=== PATIENT | male | born 1980 | race Caucasian/White ===

== ENCOUNTER 2020-04-25 21:49 | Inpatient (IN) ==
[2020-04-25] MEDS ORDERED: 0.9 % SODIUM CHLORIDE 2,000 ML IV ONE (22:04)
[2020-04-25] MEDS ORDERED: KETOROLAC 30 MG/ML VIAL IV ONE (22:04)
[2020-04-25] MEDS ORDERED: cefTRIAXone 1 GM in DEXTROSE 5% IN WATER 50 ML IV SCH (22:15)
--- NOTE | 2020-04-25 23:27 | Emergency Department Note ---
HPI General Chief complaint: Cold/Flu Symptoms Stated complaint: Fever, nausea, vomiting X1 week Time Seen by Provider: 04/25/20 22:04 Source: patient Mode of arrival: ambulatory Limitations: no limitations History of Present Illness HPI Narrative: 39-year-old patient presenting to the emergency department the chief complaint of not feeling well/generally ill. Patient with onset of symptoms 1 week prior to arrival. There are no exacerbating or ameliorating factors for this issue except that time is making this worse. The symptoms are sudden onset that are progressive over time. Patient has not been seen for this. Patient denies cyanosis, mottling, decreased urine output, altered mental status, restlessness, obtundation. Patient reports a warm flush skin and generalized diaphoresis. Patient claims fever, cough, and denies dysuria, abdominal pain. Related Data Home Medications Medication Instructions Recorded Confirmed No Known Home Meds 04/25/20 04/25/20 Allergies Allergy/AdvReac Type Severity Reaction Status Date / Time No Known Drug Allergies Allergy Unverified 04/25/20 21:51 Review of Systems All systems ED: reviewed and negative except as stated. [facility] Narrative Patient History Narrative: Sepsis Pneumonia Medical/Surgical/Family History All Active Problems (Updated 04/26/20 @ 00:23 by Pee Miller MD) Sepsis (Acute) Community acquired pneumonia (Acute) Social History Smoking Status: Current every day smoker Exam Narrative Narrative: Physical exam directed toward trying to find a source for possible infection in this patient, noting patient is febrile General: Alert, interactive, appropriate Head: Atraumatic, normocephalic Eyes: Extraocular movements intact, sclera anicteric, no conjunctival injection Ears: Pinnae normal, no discharge Mouth: Oral mucosa moist, no acute swelling or evidence of infection Nares: No nasal discharge, patent bilaterally Neck: Trachea midline, full range of motion Chest: Symmetrical chest wall rise, breathing normally; nonlabored respirations; patient does have abnormal breath sounds on the right side of his chest Cardiovascular: Patient with excellent perfusion to the extremities; with significant tachycardia Skin: Patient without area of erythema, patient is without rash, no ascending lymphangitis or lymphadenopathy Extremities: Full range of motion joints, no obvious deformities Neuro: Alert, oriented x3, cranial nerves II through XII grossly intact, patient without lateralizing findings such as weakness, or abnormal reflexes Psychiatric: Normal affect, normal mood General Limitations: no limitations Course Vital Signs Vital signs: Vital Signs Temperature 102.6 F H 04/25/20 21:51 Pulse Rate 127 H 04/25/20 21:51 Respiratory Rate 18 04/25/20 21:51 Blood Pressure 160/76 04/25/20 21:51 Pulse Oximetry (%) 96 04/25/20 21:51 Temperature 101.0 F H 04/25/20 23:42 Pulse Rate 102 H 04/25/20 23:42 Respiratory Rate 21 04/25/20 23:32 Blood Pressure 127/80 04/25/20 23:32 Pulse Oximetry (%) 94 04/25/20 23:42 MDM MDM Narrative Medical decision making narrative: 39-Year-old patient presenting to the emergency department chief complaint of fever/sepsis. Differential diagnosis considered in this case included infectious etiologies and various organ systems, drug fever/medication reaction, malignancy, ICH, NMS, meningococcus, RMSF, endocarditis. Patient noted to be severely tachycardic on presentation as well as febrile. Patient does have pneumonia on chest x-ray also does have abnormal breath sounds on that side on the right side. Despite 2 L of fluid resuscitation as well as Rocephin patient's pulse did not resolve and patient was persistently febrile. Patient with significant elevation in his white blood cell count. Lab Data Result diagrams: 04/25/20 22:10 04/25/20 22:10 Labs: Lab Results 04/25/20 04/25/20 04/25/20 Range/Units 22:10 22:10 22:10 WBC 23.8 H (4.50-11.00) K/mcL RBC 5.62 (4.63-6.08) M/mcL Hgb 16.2 (13.7-17.5) g/dL Hct 47.8 (40.1-51.0) % MCV 85.1 (80.0-100.0) fL MCH 28.8 (26.0-34.0) pg MCHC 33.9 (31.0-36.0) g/dL RDW 12.8 (11.5-14.5) % Plt Count 163 (140-440) K/mcL MPV 11.6 H (7.4-10.4) fL Gran % 87.5 H (38.0-78.0) % Lymph % (Auto) 6.2 L (15.5-49.0) % [place] % (Auto) 6.0 (1.0-12.0) % Eos % (Auto) 0.1 (0.0-7.0) % Baso % (Auto) 0.2 (0.0-2.0) % Gran # 20.85 H (1.80-8.00) K/mcL Lymph # (Auto) 1.47 L (1.50-4.80) K/mcL [place] # (Auto) 1.42 H (0.10-0.90) K/mcL Eos # (Auto) 0.03 (0.00-0.70) K/mcL Baso # (Auto) 0.04 (0.00-0.30) K/mcL Differential Comment VBG Lactic Acid (0.5-2.0) mmol/L Sodium 127 L (133-145) mmol/L Potassium 3.4 (3.3-5.1) mmol/L Chloride 91 L (96-108) mmol/L Carbon Dioxide 18 L (22-30) mmol/L Anion Gap 18.0 H (8-16) BUN 19 (6-20) mg/dl Creatinine 1.5 H (0.7-1.2) mg/dl GFR Calculation 58 Glucose 127 H (70-105) mg/dL Calcium 9.0 (8.6-10.4) mg/dl Total Bilirubin 0.8 (0.0-1.0) mg/dL AST 259 H (0-37) U/l ALT 73 H (0-40) U/l Alkaline Phosphatase 71 (39-117) U/L Total Protein 7.7 (5.9-8.4) gm/dL Albumin 3.3 (3.2-5.2) gm/dL Globulin 4.4 H (2.2-3.7) gm/dL Albumin/Globulin Ratio 0.8 L (1.0-2.3) Procalcitonin 3.24 (<0.10) ng/mL Urine Color Urine Appearance Urine pH (5.0-9.0) Ur Specific [place] (1.000-1.035) Urine Protein (NEG) mg/dL Urine Glucose (UA) (NEG) mg/dL Urine Ketones (NEG) mg/dL Urine Occult Blood (<0.03) mg/dL Urine Nitrate (NEG) Urine Bilirubin (NEG) mg/dL Urine Urobilinogen (NEG) mg/dL Ur Leukocyte Esterase (NEG) /uL Urine RBC (0-1) /hpf Urine WBC (0-4) /hpf Ur Squamous Epith Cells (0-4) /hpf Urine Bacteria (0) /hpf Hyaline Casts (0-2) /lpf Urine Mucus (0) /hpf Ur Culture Indicated? 04/25/20 04/25/20 Range/Units 22:10 23:35 WBC (4.50-11.00) K/mcL RBC (4.63-6.08) M/mcL Hgb (13.7-17.5) g/dL Hct (40.1-51.0) % MCV (80.0-100.0) fL MCH (26.0-34.0) pg MCHC (31.0-36.0) g/dL RDW (11.5-14.5) % Plt Count (140-440) K/mcL MPV (7.4-10.4) fL Gran % (38.0-78.0) % Lymph % (Auto) (15.5-49.0) % [place] % (Auto) (1.0-12.0) % Eos % (Auto) (0.0-7.0) % Baso % (Auto) (0.0-2.0) % Gran # (1.80-8.00) K/mcL Lymph # (Auto) (1.50-4.80) K/mcL [place] # (Auto) (0.10-0.90) K/mcL Eos # (Auto) (0.00-0.70) K/mcL Baso # (Auto) (0.00-0.30) K/mcL Differential Comment VBG Lactic Acid 1.8 (0.5-2.0) mmol/L Sodium (133-145) mmol/L Potassium (3.3-5.1) mmol/L Chloride (96-108) mmol/L Carbon Dioxide (22-30) mmol/L Anion Gap (8-16) BUN (6-20) mg/dl Creatinine (0.7-1.2) mg/dl GFR Calculation Glucose (70-105) mg/dL Calcium (8.6-10.4) mg/dl Total Bilirubin (0.0-1.0) mg/dL AST (0-37) U/l ALT (0-40) U/l Alkaline Phosphatase (39-117) U/L Total Protein (5.9-8.4) gm/dL Albumin (3.2-5.2) gm/dL Globulin (2.2-3.7) gm/dL Albumin/Globulin Ratio (1.0-2.3) Procalcitonin (<0.10) ng/mL Urine Color [place] Urine Appearance Cloudy Urine pH 5.0 (5.0-9.0) Ur Specific [place] 1.033 (1.000-1.035) Urine Protein 100 A (NEG) mg/dL Urine Glucose (UA) Negative (NEG) mg/dL Urine Ketones 20 A (NEG) mg/dL Urine Occult Blood >=1.0 A (<0.03) mg/dL Urine Nitrate Neg (NEG) Urine Bilirubin Neg (NEG) mg/dL Urine Urobilinogen 4.0 A (NEG) mg/dL Ur Leukocyte Esterase Neg (NEG) /uL Urine RBC 4 H (0-1) /hpf Urine WBC 10 H (0-4) /hpf Ur Squamous Epith Cells 3 (0-4) /hpf Urine Bacteria 0 (0) /hpf Hyaline Casts 8 H (0-2) /lpf Urine Mucus Many A (0) /hpf Ur Culture Indicated? Yes CC TIME Critical Care Time Critical Care Time: Yes Total Critical Care Time: 60 Attestation: This critical care time was direct patient care exclusive of other procedures. Discharge Plan Patient/Caregiver Discharge Instructions Pt seen by FOOD COUNTER ATTENDANT/PA only: No Clinical Impression: Sepsis Qualifiers: Sepsis type: sepsis due to unspecified organism Sepsis acute organ dysfunction status: with acute organ dysfunction Severe sepsis acute organ dysfunction type: unspecified Severe sepsis shock status: without septic shock Qualified Code(s): A41.9 - Sepsis, unspecified organism Community acquired pneumonia Qualifiers: Laterality: right Lung location: middle lobe of lung Qualified Code(s): J18.9 - Pneumonia, unspecified organism Prescriptions: No Action No Known Home Meds RF: 0 Follow up with: No,PCP [Primary Care Provider] - Patient Disposition: Xfer As Inpt ([facility])
[2020-04-25 23:30] LABS: ALT/SGPT 73 U/l (0-40); AST/SGOT 259 U/l (0-37); Albumin 3.3 gm/dL (3.2-5.2); Albumin/Globulin Ratio 0.8 (1.0-2.3); Alkaline Phosphatase 71 U/L (39-117); Bilirubin,Total 0.8 mg/dL (0.0-1.0); Blood Urea Nitrogen 19 mg/dl (6-20); Carbon Dioxide 18 mmol/L (22-30); Globulin 4.4 gm/dL (2.2-3.7); Glomerular Filtration Rate 58; Glucose 127 mg/dL (70-105)
[2020-04-25 23:32] LABS: Chloride 91 mmol/L (96-108)
[2020-04-25 23:33] LABS: Basophils # (Auto) 0.04 K/mcL (0.00-0.30); Basophils % (Auto) 0.2 % (0.0-2.0); Eosinophils # (Auto) 0.03 K/mcL (0.00-0.70); Eosinophils % (Auto) 0.1 % (0.0-7.0); Granulocytes % (Auto) 87.5 % (38.0-78.0); Hematocrit 47.8 % (40.1-51.0); Hemoglobin 16.2 g/dL (13.7-17.5); Lymphocytes # (Auto) 1.47 K/mcL (1.50-4.80); Lymphocytes % (Auto) 6.2 % (15.5-49.0); Mean Cell Volume 85.1 fL (80.0-100.0); Mean Corpuscular HGB Conc 33.9 g/dL (31.0-36.0); Mean Platelet Volume 11.6 fL (7.4-10.4); Monocytes # (Auto) 1.42 K/mcL (0.10-0.90); Platelet Count 163 K/mcL (140-440); RBC 5.62 M/mcL (4.63-6.08); Red Cell Distribution Width 12.8 % (11.5-14.5); WBC 23.8 K/mcL (4.50-11.00)
[2020-04-26 00:30] LABS: Appearance,Urine CLOUDY; Bacteria,Urine 0 /hpf (0); Bilirubin,Urine NEG (NEG); Color,Urine AMBER; Culture Indicated,Urine YES; Glucose,Urine (UA) NEGATIVE (NEG); Ketones,Urine 20 mg/dL (NEG); Leukocyte Esterase,Urine NEG /uL (NEG); Mucus,Urine MANY /hpf (0); Nitrate,Urine NEG (NEG); Protein,Urine 100 mg/dL (NEG); Specific Gravity,Urine 1.033 (1.000-1.035); Urine Blood >=1.0 mg/dL (<0.03); Urine Hyaline Cast 8 /lpf (0-2); Urine RBC 4 /hpf (0-1); Urine Squamous Epithelial Cell 3 /hpf (0-4); Urine WBC 10 /hpf (0-4)
[2020-04-26] MEDS ORDERED: AZITHROMYCIN 500 MG in DEXTROSE 5% IN WATER 250 ML IV ONE (00:37)
[2020-04-26] MEDS ORDERED: ACETAMINOPHEN 325 MG TABLET PO PRN (00:39)
[2020-04-26] MEDS ORDERED: HYDROcodone/APAP 5/325MG TABLET PO PRN (00:39)
[2020-04-26] MEDS ORDERED: ONDANSETRON 4 MG/2 ML VIAL IV PRN ×2 (00:39→09:04)
[2020-04-26] MEDS ORDERED: AZITHROMYCIN 500 MG in DEXTROSE 5% IN WATER 250 ML IV SCH (00:45)
[2020-04-26] MEDS ORDERED: cefTRIAXone 1 GM in DEXTROSE 5% IN WATER 50 ML IV SCH (00:45)
[2020-04-26] MEDS: 0.9 % SODIUM CHLORIDE 1,000 ML IV SCH ×2 (02:23→09:21)
--- NOTE | 2020-04-26 04:25 | XRay Report ---
CLINICAL INFORMATION: cough COMPARISON: None. FINDINGS: Heart size, mediastinum and pulmonary vessels are normal. A 7 cm masslike right perihilar infiltrate has developed. The remaining lungs are clear. No effusions. Bones and soft tissues normal. IMPRESSION: 7 cm masslike right perihilar infiltrate. Suggest treatment for pneumonia and repeat two view upright chest x-ray in two weeks to ensure resolution (i.e. the absence of an underlying mass) Interpreted and Authenticated by: Nathaniel Ho 04/26/20
[2020-04-26] MEDS ORDERED: 0.9 % SODIUM CHLORIDE 10 ML SYRINGE IV SCH (06:00)
[2020-04-26] MEDS ORDERED: DOCUSATE SODIUM 100 MG CAPSULE PO SCH (09:00)
[2020-04-26] MEDS: DEXAMETHASONE 4 MG TABLET PO SCH (09:04)
[2020-04-26] MEDS: ENOXAPARIN 40 MG/0.4 ML SYRINGE SQ SCH ×2 (10:23→21:23)
[2020-04-26] MEDS: ALBUTEROL SULFATE 200 PUFF INHALER INH PRN ×3 (10:23→21:26)
[2020-04-26] MEDS: cefTRIAXone 2 GM in DEXTROSE 5% IN WATER 50 ML IV SCH (10:23)
[2020-04-26 10:42] LABS: C-Reactive Protein 34.9 mg/dl (0.0-0.8)
--- NOTE | 2020-04-26 12:08 | Internal Med History&Physical ---
HPI History of Present Illness Patient information: Note initiated : 04/26/20 at 12:03 pm Service Date, if different from initiated Date: [] Patient: Kevin Brumfield a 39 y/o M admitted on 04/26/20 for Fever, nausea, vomiting X1 week. Chief Complaint: 39-year-old gentleman with a history of active smoking was brought to the ER because he is not feeling well and having chills. Patient symptoms started 1 week prior to arrival and he did not check his temperature and not sure he had fever last 7 days. But he was feeling tired weak and having shortness of breath with activities patient denied any exposure to anyone tested positive for COVID-19. Patient denied any travel outside the state. Patient started having cough for the last 3 days which has been progressively worse and which is mostly dry cough. Patient was evaluated in the ED and found out to be on since having sepsis and started on ceftriaxone azithromycin and chest x-ray showing more like a focal lesion on the right hilar area. But his other lab findings suggestive of COVID-19 with acute lymphopenia and elevated d- dimer and inflammatory markers. COVID-19 PCR ordered in the ED History of present illness: Mr. Brumfield is a 39 year old M Constitutional Constitutional: Present as per HPI, anorexia, chills, excessive sweating, fatigue, lethargy, malaise and weakness EENT Eyes: Absent blind spots, blurry vision, change in vision, decreased night vision, diplopia and discharge Ears: Absent decreased hearing, ear discharge and ear pain Nose, mouth and throat: Present change in voice, dizziness, headache(s) and hoarseness; Absent epistaxis, nasal discharge and nasal obstruction Cardiovascular Cardiovascular: Present diaphoresis, dyspnea on exertion and palpatations; Absent irregular heart rhythm, leg ulcers, radiating pain and syncope Respiratory Respiratory: Present cough, dyspnea, dyspnea on exertion, wheezing, chest congestion and pain with cough; Absent stridor and excessive phlegm production Gastrointestinal Gastrointestinal: Present diarrhea; Absent change in bowel habits, constipation and dyspepsia Musculoskeletal Musculoskeletal: Present muscle weakness; Absent atrophy, back pain and joint swelling Neurological Neurological: Absent abnormal gait, abnormal movements, abnormal speech, confusion and dizziness Psychiatric Psychiatric: Present anxiety; Absent abnormal sleep pattern, auditory hallucinations, change in libido and depression Endocrine Endocrine: Present fatigue; Absent change in body appearance, cold intolerance and deeping of the voice Hematologic/Lymphatic Hematologic/Lymphatic: Absent easy bleeding and lymphadenopathy Allergic/Immunologic Allergic/Immunologic: Present seasonal rhinorrhea and wheezing; Absent tongue swelling, itchy eyes and uticaria [facility] Social History smoking status: Current every day smoker MEDS/ALLERGIES Home Medications and Allergies Home Medications Medication Instructions Recorded Confirmed Type No Known Home Meds 04/25/20 04/25/20 History Allergies Allergy/AdvReac Type Severity Reaction Status Date / Time No Known Drug Allergies Allergy Unverified 04/25/20 21:51 EXAM Constitutional Vitals: Temp Pulse Resp BP Pulse Ox 98.5 F 101 H 16 113/81 94 04/26/20 07:46 04/26/20 03:24 04/26/20 07:46 04/26/20 07:46 04/26/20 09:04 General appearance: mild distress, morbidly obese and obese Head Head exam: Present atraumatic and normal inspection Eye Eye exam: Present conjunctival injection and EOMI; Absent periorbital swelling and scleral icterus ENT ENT exam: Present mucous membranes dry Neck Neck exam: Absent lymphadenopathy, meningismus and tenderness Respiratory Respiratory exam: Present accessory muscle use, respiratory distress and wheezes ; Absent chest wall tenderness and decreased breath sounds Cardiovascular Cardiovascular exam: Present tachycardia; Absent clicks, irregular rhythm, rubs, +S3 and systolic murmur GI/Abdominal GI/Abdominal exam: Present normal bowel sounds, soft and distended Extremities Exam Extremities exam: Present normal capillary refill and neurovascular intact; Absent tenderness and Neena's sign Psychiatric Psychiatric exam: Present anxious; Absent agitated and depressed DATA Data Completed and Pending Labs on day of discharge: Labs from last 24 hours 04/26/20 04/26/20 04/26/20 09:30 08:47 01:15 WBC RBC Hgb Hct MCV MCH MCHC RDW Plt Count MPV Gran % Lymph % (Auto) [place] % (Auto) Eos % (Auto) Baso % (Auto) Gran # Lymph # (Auto) [place] # (Auto) Eos # (Auto) Baso # (Auto) Differential Comment D-Dimer 5.08 H VBG Lactic Acid Sodium Potassium Chloride Carbon Dioxide Anion Gap BUN Creatinine GFR Calculation Glucose Calcium Ferritin 1152.0 H Total Bilirubin AST ALT Alkaline Phosphatase C-Reactive Protein 34.9 H Total Protein Albumin Globulin Albumin/Globulin Ratio Procalcitonin Urine Color Urine Appearance Urine pH Ur Specific [place] Urine Protein Urine Glucose (UA) Urine Ketones Urine Occult Blood Urine Nitrate Urine Bilirubin Urine Urobilinogen Ur Leukocyte Esterase Urine RBC Urine WBC Ur Squamous Epith Cells Urine Bacteria Hyaline Casts Urine Mucus Ur Culture Indicated? Nasal/Oral COVID-19 PCR Pending 04/25/20 04/25/20 04/25/20 23:35 22:10 22:10 WBC RBC Hgb Hct MCV MCH MCHC RDW Plt Count MPV Gran % Lymph % (Auto) [place] % (Auto) Eos % (Auto) Baso % (Auto) Gran # Lymph # (Auto) [place] # (Auto) Eos # (Auto) Baso # (Auto) Differential Comment D-Dimer VBG Lactic Acid 1.8 Sodium 127 L Potassium 3.4 Chloride 91 L Carbon Dioxide 18 L Anion Gap 18.0 H BUN 19 Creatinine 1.5 H GFR Calculation 58 Glucose 127 H Calcium 9.0 Ferritin Total Bilirubin 0.8 AST 259 H ALT 73 H Alkaline Phosphatase 71 C-Reactive Protein Total Protein 7.7 Albumin 3.3 Globulin 4.4 H Albumin/Globulin Ratio 0.8 L Procalcitonin Urine Color [place] Urine Appearance Cloudy Urine pH 5.0 Ur Specific [place] 1.033 Urine Protein 100 A Urine Glucose (UA) Negative Urine Ketones 20 A Urine Occult Blood >=1.0 A Urine Nitrate Neg Urine Bilirubin Neg Urine Urobilinogen 4.0 A Ur Leukocyte Esterase Neg Urine RBC 4 H Urine WBC 10 H Ur Squamous Epith Cells 3 Urine Bacteria 0 Hyaline Casts 8 H Urine Mucus Many A Ur Culture Indicated? Yes Nasal/Oral COVID-19 PCR 04/25/20 04/25/20 22:10 22:10 WBC 23.8 H RBC 5.62 Hgb 16.2 Hct 47.8 MCV 85.1 MCH 28.8 MCHC 33.9 RDW 12.8 Plt Count 163 MPV 11.6 H Gran % 87.5 H Lymph % (Auto) 6.2 L [place] % (Auto) 6.0 Eos % (Auto) 0.1 Baso % (Auto) 0.2 Gran # 20.85 H Lymph # (Auto) 1.47 L [place] # (Auto) 1.42 H Eos # (Auto) 0.03 Baso # (Auto) 0.04 Differential Comment D-Dimer VBG Lactic Acid Sodium Potassium Chloride Carbon Dioxide Anion Gap BUN Creatinine GFR Calculation Glucose Calcium Ferritin Total Bilirubin AST ALT Alkaline Phosphatase C-Reactive Protein Total Protein Albumin Globulin Albumin/Globulin Ratio Procalcitonin 3.24 Urine Color Urine Appearance Urine pH Ur Specific [place] Urine Protein Urine Glucose (UA) Urine Ketones Urine Occult Blood Urine Nitrate Urine Bilirubin Urine Urobilinogen Ur Leukocyte Esterase Urine RBC Urine WBC Ur Squamous Epith Cells Urine Bacteria Hyaline Casts Urine Mucus Ur Culture Indicated? Nasal/Oral COVID-19 PCR A/P Narrative A/P Narrative: Narrative: Sepsis due to pneumonia Present with the tachypnea tachycardia and leukocytosis His lab profile suggestive of COVID-19 pneumonia with the absolute acute lymphopenia elevated d-dimer and elevated liver enzymes But his chest x-ray not typical for COVID-19 pneumonia-could be an early chest x-ray We will monitor his oxygenation Started him on antibiotics ceftriaxone and azithromycin and is treating him for COVID-19 pneumonia COVID-19 PCR pending Acute hypoxic respiratory failure [id number] versus COVID 19 pneumonia Patient presented with worsening shortness of breath and sepsis Strict airborne droplet isolation COVID-19 PCR pending Started him on Lovenox 40 twice daily with elevated d-dimer Started him on dexamethasone 6 mg p.o. if he become more hypoxic will change to IV Ceftriaxone azithromycin to cover for community-acquired pneumonia Sputum Gram stain and culture Tobacco dependence Will use nicotine patch and encourage the patient to cut down and stop smoking DVT prophylaxis-on Lovenox 40 twice daily CODE STATUS-full code Explained to the patient about the critical nature of the problem and if it is COVID-19 pneumonia there is a high likely chance he can go into requiring high flow oxygen and might even requiring ventilator. Patient understand that CPT [id number] Time Spent With Patient Time: Total time spent is greater than 50% in coordination of care (as documented) at patient's floor/unit and/or counseling patient: QUALITY VTE Deep Vein Thrombosis/Pulmonary Embolism Present on Admission: No
[2020-04-26] MEDS ORDERED: cefTRIAXone 1 GM VIAL IV SCH (13:00)
[2020-04-26] MEDS: guaiFENesin/CODEINE 10 ML UDC PO PRN (16:45)
[2020-04-26] MEDS: AZITHROMYCIN 500 MG in DEXTROSE 5% IN WATER 250 ML IV SCH (16:46)
[2020-04-26] MEDS: 0.9 % SODIUM CHLORIDE 10 ML SYRINGE IV SCH ×2 (16:47→21:25)
[2020-04-26] MEDS ORDERED: SENNOSIDES 1 TABLET PO SCH (21:00)
[2020-04-26] MEDS: ACETAMINOPHEN 325 MG TABLET PO PRN (21:23)
[2020-04-26] MEDS: SENNOSIDES 1 TABLET PO SCH (21:24)
[2020-04-26] MEDS: DOCUSATE SODIUM 100 MG CAPSULE PO SCH (21:24)
[2020-04-27] MEDS: ALBUTEROL SULFATE 200 PUFF INHALER INH PRN ×2 (03:38→18:55)
[2020-04-27] MEDS: 0.9 % SODIUM CHLORIDE 10 ML SYRINGE IV SCH ×3 (05:15→23:47)
[2020-04-27] MEDS: PANTOPRAZOLE 40 MG TABLET PO SCH (09:02)
[2020-04-27] MEDS: DEXAMETHASONE 4 MG TABLET PO SCH (09:03)
[2020-04-27] MEDS: DOCUSATE SODIUM 100 MG CAPSULE PO SCH ×2 (09:04→21:43)
[2020-04-27] MEDS: ENOXAPARIN 40 MG/0.4 ML SYRINGE SQ SCH ×2 (09:04→21:43)
[2020-04-27] MEDS: cefTRIAXone 2 GM in DEXTROSE 5% IN WATER 50 ML IV SCH (09:04)
[2020-04-27] MEDS: guaiFENesin/CODEINE 10 ML UDC PO PRN ×3 (09:25→21:41)
[2020-04-27] MEDS: ACETAMINOPHEN 325 MG TABLET PO PRN ×2 (09:25→21:42)
[2020-04-27] MEDS: AZITHROMYCIN 500 MG in DEXTROSE 5% IN WATER 250 ML IV SCH (09:27)
--- NOTE | 2020-04-27 13:06 | Internal Med Progress Note ---
SUBJECTIVE Subjective Patient information: Note initiated : 04/27/20 at 1:05 pm Service Date, if different from initiated Date: [] Patient: Kevin Brumfield 39 y/o M admitted on 04/26/20 for Fever, nausea, vomiting X1 week. Chief Complaint: [] 39-year-old gentleman with a history of active smoking was brought to the ER because he is not feeling well and having chills. Patient symptoms started 1 we ek prior to arrival and he did not check his temperature and not sure he had fever last 7 days. But he was feeling tired weak and having shortness of breath with activities patient denied any exposure to anyone tested positive for COVID-19. Patient denied any travel outside the state. Patient started having cough for the last 3 days which has been progressively worse and which is mostly dry cough. Patient was evaluated in the ED and found out to be on since having sepsis and started on ceftriaxone azithromycin and chest x-ray showing more like a focal lesion on the right hilar area. But his other lab findings suggestive of COVID-19 with acute lymphopenia and elevated d-dimer and inflamm atory markers. COVID-19 PCR ordered in the ED 04/27 Since admission patient was started on Lovenox, dexamethasone and ceftriaxone and azithromycin for community-acquired pneumonia COVID-19 PCR still pending Patient's hypoxia significantly improved and patient feeling significantly better He was able to sit up without having any hypoxia Review of system General-no fever no chills overnight Respiratory-continued having cough shortness of breath improved and hypoxia improved Cardiac-no chest pain no palpitation no dizziness no syncope Abdominal-no diarrhea no constipation no abdominal pain no tenderness Musculoskeletal-continued having muscle pain and limited activity Urinary-denied any urine symptoms no increasing frequency or dysuria Neuro-no headache no focal neuro deficit Interval history: Narrative: Constitutional Vitals: Vital Signs Temp Pulse Resp BP Pulse Ox 96.7 F L 89 18 122/78 94 04/27/20 11:37 04/27/20 11:37 04/27/20 11:37 04/27/20 11:37 04/27/20 11:37 Period Temp Pulse Resp BP Sys/Majano Pulse Ox Last 24 Hr 96.7 F-99.5 F 84-100 16-22 116-126/68-84 94-98 Intake and Output 04/26/20 04/27/20 04/27/20 21:59 05:59 13:59 Intake Total 1150 1100 300 Output Total 200 1000 300 Balance 950 100 0 Weight 277 lb 9 oz Intake & Output: Intake & Output 04/26/20 04/27/20 04/27/20 21:59 05:59 13:59 Intake Total 1150 1100 300 Output Total 200 1000 300 Balance 950 100 0 Weight 277 lb 9 oz Intake: IV 250 300 Zithromax 500 mg In Dextrose 5% 250 250 in Water 250 ml @ 250 mls/hr IV DAILY KEISHA Rx#:[id number] Rocephin 2 gm In Dextrose 5% in 50 Water 50 ml @ 100 mls/hr IV DAILY KEISHA Rx#:[id number] Oral 900 1100 Output: Void Amount 200 1000 300 Other: Meal Dinner Percent of Meal Consumed 100% Feeding Ability Independent Urine Appearance Clear Clear Clear Urine Color Bright Yellow Tea Colored Light Emani Urine Odor Strong Stool Size Large Stool Color Brown Stool Consistency Loose General appearance: mild distress and obese Head Head exam: Present atraumatic, normal inspection and normocephalic Eye Eye exam: Present EOMI; Absent periorbital swelling and scleral icterus ENT ENT exam: Present mucous membranes moist and normal oropharynx Neck Neck exam: Present full ROM; Absent lymphadenopathy and tenderness Respiratory Respiratory exam: Absent accessory muscle use, respiratory distress and rhonchi Cardiovascular Cardiovascular exam: Present normal rate and rhythm; Absent bradycardia, systolic murmur and tachycardia GI/Abdominal GI/Abdominal exam: Present distended; Absent guarding Neurological Exam Neurological exam: Present alert, CN II-XII intact, oriented X3 and reflexes normal; Absent motor sensory deficit Psychiatric Psychiatric exam: Absent agitated, anxious and depressed OBJ DATA Labs CBC & Chem 7: 04/25/20 22:10 04/25/20 22:10 Labs: Abnormal Lab Results 04/26/20 04/26/20 04/25/20 09:30 08:47 23:35 WBC MPV Gran % Lymph % (Auto) Gran # Lymph # (Auto) Casey # (Auto) D-Dimer 5.08 H Sodium Chloride Carbon Dioxide Anion Gap Creatinine Glucose Ferritin 1152.0 H AST ALT C-Reactive Protein 34.9 H Globulin Albumin/Globulin Ratio Urine Protein 100 A Urine Ketones 20 A Urine Occult Blood >=1.0 A Urine Urobilinogen 4.0 A Urine RBC 4 H Urine WBC 10 H Hyaline Casts 8 H Urine Mucus Many A 04/25/20 04/25/20 22:10 22:10 WBC 23.8 H MPV 11.6 H Gran % 87.5 H Lymph % (Auto) 6.2 L Gran # 20.85 H Lymph # (Auto) 1.47 L Casey # (Auto) 1.42 H D-Dimer Sodium 127 L Chloride 91 L Carbon Dioxide 18 L Anion Gap 18.0 H Creatinine 1.5 H Glucose 127 H Ferritin AST 259 H ALT 73 H C-Reactive Protein Globulin 4.4 H Albumin/Globulin Ratio 0.8 L Urine Protein Urine Ketones Urine Occult Blood Urine Urobilinogen Urine RBC Urine WBC Hyaline Casts Urine Mucus Meds: Medications Acetaminophen (Tylenol) 650 mg PO Q6HP PRN; Protocol PRN Reason: Per Pain Protocol/Fever > 101 Last Admin: 04/27/20 09:25 Dose: 650 mg Documented by: Albuterol Sulfate (Ventolin) 2 puff INH Q4HP PRN PRN Reason: Shortness Of Breath Last Admin: 04/27/20 03:38 Dose: 2 puff Documented by: Dexamethasone (Decadron) 6 mg PO DAILY [facility] Last Admin: 04/27/20 09:03 Dose: 6 mg Documented by: Docusate Sodium (Colace) 100 mg PO BID [facility] Last Admin: 04/27/20 09:04 Dose: Not Given Documented by: Enoxaparin Sodium (Lovenox) 40 mg SQ BID [facility] Last Admin: 04/27/20 09:04 Dose: 40 mg Documented by: Guaifenesin/Codeine Phosphate (Robitussin Ac) 10 ml PO Q4HP PRN PRN Reason: Cough Last Admin: 04/27/20 09:25 Dose: 10 ml Documented by: Ceftriaxone Sodium 2 gm/ (Dextrose) 50 mls @ 100 mls/hr IV DAILY [facility] Last Infusion: 04/27/20 09:34 Dose: Infused Documented by: Ondansetron HCl (Zofran) 4 mg IV Q6HP PRN PRN Reason: Nausea And Vomiting Pantoprazole Sodium (Protonix) 40 mg PO QAMAC [facility] Last Admin: 04/27/20 09:02 Dose: 40 mg Documented by: Senna (Senokot) 2 tab PO HS [facility] Last Admin: 04/26/20 21:24 Dose: Not Given Documented by: Sodium Chloride (Saline Flush) 10 ml IV Q8 [facility] Last Admin: 04/27/20 05:15 Dose: 10 ml Documented by: A/P Narrative A/P Narrative: Narrative: Sepsis due to pneumonia-improved Present with the tachypnea tachycardia and leukocytosis His lab profile suggestive of COVID-19 pneumonia with the absolute acute lymphopenia elevated d-dimer and elevated liver enzymes But his chest x-ray not typical for COVID-19 pneumonia-could be an early chest x-ray We will monitor his oxygenation Started him on antibiotics ceftriaxone and azithromycin and is treating him for COVID-19 pneumonia COVID-19 PCR pending Patient was started on Lovenox 40 twice daily with his obesity smoking and risk of COVID-19 ARDS Continued ceftriaxone and azithromycin Acute hypoxic respiratory failure Uaqijywbe-njlknzfhw-uofniuiz versus COVID 19 pneumonia Patient presented with worsening shortness of breath and sepsis Strict airborne droplet isolation COVID-19 PCR pending Started him on Lovenox 40 twice daily with elevated d-dimer Started him on dexamethasone 6 mg p.o. if he become more hypoxic will change to IV Ceftriaxone azithromycin to cover for community-acquired pneumonia Tobacco dependence Will use nicotine patch and encourage the patient to cut down and stop smoking DVT prophylaxis-on Lovenox 40 twice daily CODE STATUS-full code Time Spent With Patient Time: Total time spent is greater than 50% in coordination of care (as documented) at patient's floor/unit and/or counseling patient: QUALITY VTE Deep Vein Thrombosis/Pulmonary Embolism Present on Admission: No
[2020-04-27] MEDS: SENNOSIDES 1 TABLET PO SCH (21:43)
[2020-04-28] MEDS: 0.9 % SODIUM CHLORIDE 10 ML SYRINGE IV SCH (05:40)
[2020-04-28 07:12] LABS: ALT/SGPT 157 U/l (0-40); AST/SGOT 289 U/l (0-37); Albumin 2.9 gm/dL (3.2-5.2); Albumin/Globulin Ratio 0.8 (1.0-2.3); Alkaline Phosphatase 55 U/L (39-117); Bilirubin,Total 0.4 mg/dL (0.0-1.0); Blood Urea Nitrogen 20 mg/dl (6-20); Calcium 8.8 mg/dl (8.6-10.4); Carbon Dioxide 26 mmol/L (22-30); Chloride 98 mmol/L (96-108); Globulin 3.7 gm/dL (2.2-3.7); Glomerular Filtration Rate 108; Glucose 129 mg/dL (70-105)
[2020-04-28 07:17] LABS: Basophils # (Auto) 0.05 K/mcL (0.00-0.30); Basophils % (Auto) 0.3 % (0.0-2.0); Eosinophils # (Auto) 0.01 K/mcL (0.00-0.70); Eosinophils % (Auto) 0.1 % (0.0-7.0); Granulocytes % (Auto) 80.8 % (38.0-78.0); Hemoglobin 13.9 g/dL (13.7-17.5); Lymphocytes # (Auto) 1.71 K/mcL (1.50-4.80); Lymphocytes % (Auto) 10.7 % (15.5-49.0); Mean Cell Volume 85.4 fL (80.0-100.0); Mean Corpuscular HGB Conc 33.9 g/dL (31.0-36.0); Mean Platelet Volume 12.1 fL (7.4-10.4); Monocytes % (Auto) 8.1 % (1.0-12.0); Platelet Count 187 K/mcL (140-440); Red Cell Distribution Width 13.4 % (11.5-14.5)
[2020-04-28] MEDS: PANTOPRAZOLE 40 MG TABLET PO SCH (08:49)
[2020-04-28] MEDS: cefTRIAXone 2 GM in DEXTROSE 5% IN WATER 50 ML IV SCH (08:49)
[2020-04-28] MEDS: DEXAMETHASONE 4 MG TABLET PO SCH (08:50)
[2020-04-28] MEDS: DOCUSATE SODIUM 100 MG CAPSULE PO SCH (08:50)
[2020-04-28] MEDS: ACETAMINOPHEN 325 MG TABLET PO PRN (08:51)
[2020-04-28] MEDS: guaiFENesin/CODEINE 10 ML UDC PO PRN (08:51)
[2020-04-28] MEDS: ENOXAPARIN 40 MG/0.4 ML SYRINGE SQ SCH (08:52)
--- NOTE | 2020-04-28 10:36 | Discharge Summary ---
Discharge Provider Provider Patient information: Note initiated : 04/28/20 at 10:33 am Service Date, if different from initiated Date: [] Patient: Kevin Brumfield 39 y/o M admitted on 04/26/20 for Fever, nausea, vomiting X1 week. Chief Complaint: [] Date of admission: 04/26/20 01:48 Discharge date: 04/28/20 Primary care physician: PCP No Consults: 04/26/20 07:43 Consult to Physician [CONS] Routine Comment: Consulting Provider: Viridiana Price Reason For Exam: Physician to Consult Discharge Meds Discharge Medications Active and Home Medications: Home Medications azithromycin 500 mg PO QDAY 3 Days #3 tab 04/28/20 [Rx Last Taken Unknown] cefpodoxime 200 mg PO BID #14 tab 04/28/20 [Rx Last Taken Unknown] COURSE Hospital Course Hospital Course: 39-year-old gentleman with a history of active smoking was brought to the ER because he is not feeling well and having chills. Patient symptoms started 1 week prior to arrival and he did not check his temperature and not sure he had fever last 7 days. But he was feeling tired weak and having shortness of breath with activities patient denied any exposure to anyone tested positive for COVID- 19. Patient denied any travel outside the state. Patient started having cough for the last 3 days which has been progressively worse and which is mostly dry cough. Patient was evaluated in the ED and found out to be on since having sepsis and started on ceftriaxone azithromycin and chest x-ray showing more like a focal lesion on the right hilar area. But his other lab findings suggestive of COVID-19 with acute lymphopenia and elevated d-dimer and inflammatory markers. COVID-19 PCR ordered in the ED 04/27 Since admission patient was started on Lovenox, dexamethasone and ceftriaxone and azithromycin for community-acquired pneumonia COVID-19 PCR still pending Patient's hypoxia significantly improved and patient feeling significantly better He was able to sit up without having any hypoxia 04/28 Patient is off of oxygen for the last 48 hours No fever He is feeling great Patient want to be discharged today as he does not have any insurance Advised the patient to watch for any symptoms if you develop persistent fever or shortness of breath advised him to go to the ED His COVID-19 PCR is pending this needs to be followed up outpatient in the next 1 to 2 days Prescribe him Cefpodoxime 200 twice daily for next 7 days and azithromycin 5-day daily for next 3 days Review of system General-no fever no chills overnight Respiratory-continued having cough shortness of breath improved and hypoxia improved Cardiac-no chest pain no palpitation no dizziness no syncope Abdominal-no diarrhea no constipation no abdominal pain no tenderness Musculoskeletal-continued having muscle pain and limited activity Urinary-denied any urine symptoms no increasing frequency or dysuria Neuro-no headache no focal neuro deficit Sepsis due to pneumonia-resolved Present with the tachypnea tachycardia and leukocytosis His lab profile suggestive of COVID-19 pneumonia with the absolute acute lymphopenia elevated d-dimer and elevated liver enzymes But his chest x-ray not typical for COVID-19 pneumonia-could be an early chest x-ray He improved his oxygenation and he is off of oxygen for the last 48-hour Started him on antibiotics ceftriaxone and azithromycin and is treating him for COVID-19 pneumonia Prescribe him cefpodoxime and azithromycin outpatient COVID-19 PCR pending-this needs to be followed up outpatient He received Lovenox with obesity and risk of micro emboli and if it is COVID-19 Since he is off oxygen will discontinue the Lovenox He received dexamethasone during admission and discontinued as he is off of oxygen Acute hypoxic respiratory failure Knpskppzb-bnhkvwfeh-varyvmop versus COVID 19 pneumonia Patient presented with worsening shortness of breath and sepsis Strongly encouraged the patient to stay home and isolate from family members and community COVID-19 PCR-this needs to be followed up in our team will call him if it is positive Tobacco dependence Will use nicotine patch and encourage the patient to cut down and stop smoking Discharge diagnosis: Sepsis due to pneumonia Time spent discussing smoking cessation with patient: 3 to 10 minutes Time Spent with Patient Time attestation: Total time spent providing and/or coordinating discharge services: EXAM Constitutional Vitals: Temp Pulse Resp BP Pulse Ox 99.3 F H 91 H 18 128/87 97 04/28/20 08:00 04/28/20 08:00 04/28/20 08:00 04/28/20 08:00 04/28/20 09:00 General appearance: cooperative, no acute distress and obese Head Head exam: Present atraumatic, normal inspection and normocephalic Eye Eye exam: Present EOMI; Absent periorbital swelling and scleral icterus ENT ENT exam: Present normal exam and normal oropharynx Respiratory Respiratory exam: Present rales and wheezes; Absent accessory muscle use Cardiovascular Cardiovascular exam: Present normal rate and rhythm; Absent bradycardia GI/Abdominal GI/Abdominal exam: Present normal bowel sounds and distended; Absent guarding Neurological Exam Neurological exam: Present alert, oriented X3 and reflexes normal; Absent motor sensory deficit Discharge Data Data Completed and Pending Labs on day of discharge: Labs from last 24 hours 04/28/20 04/28/20 06:05 06:05 WBC 16.0 H RBC 4.80 Hgb 13.9 Hct 41.0 MCV 85.4 MCH 29.0 MCHC 33.9 RDW 13.4 Plt Count 187 MPV 12.1 H Gran % 80.8 H Lymph % (Auto) 10.7 L [facility] % (Auto) 8.1 Eos % (Auto) 0.1 Baso % (Auto) 0.3 Gran # 12.92 H Lymph # (Auto) 1.71 [facility] # (Auto) 1.30 H Eos # (Auto) 0.01 Baso # (Auto) 0.05 Sodium 135 Potassium 3.7 Chloride 98 Carbon Dioxide 26 Anion Gap 11.0 BUN 20 Creatinine 0.9 GFR Calculation 108 Glucose 129 H Calcium 8.8 Magnesium 2.4 Total Bilirubin 0.4 AST 289 H ALT 157 H Alkaline Phosphatase 55 Total Protein 6.6 Albumin 2.9 L Globulin 3.7 Albumin/Globulin Ratio 0.8 L Preliminary micro results at discharge 04/25/20 22:15 Blood Culture - Preliminary Blood 04/25/20 22:10 Blood Culture - Preliminary Blood 04/26/20 23:35 Urine Culture - Preliminary Urine - Clean Void Mid-Stream Discharge Plan Patient/Caregiver Discharge Instructions Activity: increase activity as tolerated Diet: Regular Diet Activity Restrictions/Additional Instructions: COVID-19 test results are pending-call us in 1 to 2 days to get the results If he started feeling short of breath or started spiking fever again go to the ED Increase activity as tolerated Continue antibiotics for next 7 days Follow-up with the primary care provider in 1 week to make sure the resolution o f your pneumonia Prescriptions: New cefpodoxime 200 mg tablet 200 mg PO BID Qty: 14 RF: 0 azithromycin 500 mg tablet 500 mg PO QDAY 3 Days Qty: 3 RF: 0 Follow Up Plan Follow up with: No,PCP [Primary Care Provider] - (7-10 days) Patient Disposition: Home, Self-Care Rehab Potential: Good I certify that the patient requires SNF services: No Overall status at discharge: patient is progressing back to baseline Discharge Orders: Discharge Order (Routine); Ordered 04/28/20 Ordered By: Viridiana RANGEL VTE Deep Vein Thrombosis/Pulmonary Embolism Present on Admission: No
== END 2020-04-28 12:01 | disposition home or self-care (01) | DRG 871 ==
LOC: ED 21:49 → MEDSUR 04-26 01:48
PROVIDERS: ADMIT Internal Medicine; ATTEND Internal Medicine